=== PATIENT | female | born 1990 | race Caucasian/White ===

== ENCOUNTER 2017-04-16 17:07 | Emergency (ER) | payer MEDICAID ==
[~2017-04-16] VITALS: Ht 162.6 cm; Wt 95.0 kg
[~2017-04-16 17:07] MED LIST: NITR100C6 PO; NO HOME MEDS; PREN1TAB79 PO
[2017-04-16] MEDS ORDERED: mag hydrox/Alum hydrox/simeth 30ml oral suspension PO ONE (18:05)
[2017-04-16] MEDS ORDERED: LIDOcaine Viscous 15ml cup PO ONE (18:05)
[2017-04-16] MEDS ORDERED: pantoprazole 40mg Tablet.DR PO ONE (18:05)
[2017-04-16] MEDS ORDERED: famotidine 20mg tablet PO ONE (18:05)
[2017-04-16 18:27] LABS: BASOPHILS # (AUTO) 0.1 X10'3 (0-0.2); BASOPHILS % (AUTO) 0.6 % (0-1); EOSINOPHILS # (AUTO) 0.4 X10'3 (0-0.9); EOSINOPHILS % (AUTO) 4.1 % (0-6); HEMATOCRIT 39.1 % (35.0-45.0); HEMOGLOBIN 13.5 g/dl (12.0-16.0); LYMPHOCYTES # (AUTO) 3.7 X10'3 (1.1-4.8); LYMPHOCYTES % (AUTO) 36.2 % (21-51); MEAN CORPUSCULAR HEMOGLOBIN 27.6 PG (27.0-31.0); MEAN CORPUSCULAR HGB CONC 34.4 % (33.0-36.5); MEAN CORPUSCULAR VOLUME 80.3 FL (78-98); MEAN PLATELET VOLUME 7.5 FL (7.4-10.4); MONOCYTES # (AUTO) 0.6 X10'3 (0-0.9); MONOCYTES % (AUTO) 6.1 % (2-12); NEUTROPHILS # (AUTO) 5.5 X10'3 (1.8-7.7); PLATELET COUNT 400 X10'3 (140-440); RED BLOOD COUNT 4.87 X10'6 (4.20-5.60); RED CELL DISTRIBUTION WIDTH 14.9 % (11.5-14.5); WHITE BLOOD COUNT 10.3 X10'3 (4.5-11.0)
[2017-04-16 18:43] LABS: ALANINE AMINOTRANSFERASE 23 U/L (12-78); ALBUMIN/GLOBULIN RATIO 0.9 (1.1-1.5); ALKALINE PHOSPHATASE 64 IU/L (46-116); ANION GAP 11 (8-16); ASPARTATE AMINO TRANSFERASE 9 U/L (10-37); BILIRUBIN,TOTAL 0.2 MG/DL (0.1-1.0); BLOOD UREA NITROGEN 10 MG/DL (7-18); BUN/CREATININE RATIO 16.4 (6.6-38.0); CALCIUM 9.1 MG/DL (8.5-10.1); CHLORIDE 101 MMOL/L (99-107); CREATININE 0.61 MG/DL (0.40-0.90); GLUCOSE 92 MG/DL (70-104); LIPASE 198 U/L (73-393); POTASSIUM 3.8 MMOL/L (3.5-5.1); SODIUM 140 MMOL/L (135-145); TOTAL CARBON DIOXIDE 28.5 MMOL/L (24-32); TOTAL PROTEIN 8.3 G/DL (6.4-8.2); eGFR > 90 ML/MIN
[2017-04-16 19:10] LABS: CLARITY,URINE Clear (Clear); COLOR,URINE Yellow (Yellow); GLUCOSE, URINE Negative (Neg); KETONES,URINE Negative (Neg); LEUKOCYTE ESTERASE ,URINE Negative (Neg); NITRITES, URINE Negative (Neg); OCCULT BLOOD,URINE Negative (Neg); PH,URINE 5.5 (4.8-8.0); PROTEIN,URINE Negative (Neg)
[2017-04-16 19:12] LABS: URINE HCG NEGATIVE (NEG)
[2017-04-16 19:14] LABS: UA COLLECTION TYPE CLN CATCH MIDSTREAM
[2017-04-16] MEDS ORDERED: PANT-47 PO (19:16)
[2017-04-16 19:49] VITALS: BP 126/80
== END 2017-04-16 19:50 | disposition home or self-care (01) ==
LOC: ER 17:07
DX: R10.13 Epigastric pain (principal); R11.2 Nausea with vomiting, unspecified; R05 Cough; Z88.6 Allergy status to analgesic agent; Z79.899 Other long term (current) drug therapy
CPT/HCPCS: 36415; 71045; 80053; 81003; 81025; 83690; 85025; 99285; J7030

== ENCOUNTER 2018-05-12 12:05 | Emergency (ER) | payer MEDICAID ==
[~2018-05-12] VITALS: Ht 162.6 cm; Wt 86.4 kg
[~2018-05-12 12:05] MED LIST changes: +PANT-47 PO
[2018-05-12 12:43] LABS: CLARITY,URINE SLIGHTLY CLOUDY (Clear); COLOR,URINE YELLOW (Yellow); GLUCOSE, URINE NEGATIVE (Neg); KETONES,URINE NEGATIVE (Neg); LEUKOCYTE ESTERASE ,URINE LARGE (Neg); NITRITES, URINE NEGATIVE (Neg); OCCULT BLOOD,URINE SMALL (Neg); PH,URINE 5.5 (4.8-8.0); PROTEIN,URINE NEGATIVE (Neg); UROBILINOGEN,URINE 0.2 E.U/dL (0.2-1.0)
[2018-05-12 12:52] LABS: UA COLLECTION TYPE CLN CATCH MIDSTREAM
[2018-05-12 12:56] LABS: SQUAMOUS EPITHELIAL CELL,UR MODERATE /LPF (FEW)
[2018-05-12 12:58] LABS: WBC,URINE 30-50 /HPF (0-4)
[2018-05-12 12:59] LABS: TRANSITIONAL EPI CELLS,URINE FEW /HPF; WBC CLUMPS,URINE FEW /HPF (NEGATIVE)
[2018-05-12 13:00] LABS: BACTERIA,URINE FEW /HPF (Neg)
[2018-05-12] MEDS ORDERED: NITR100C6 PO (13:07)
[2018-05-12 13:30] VITALS: BP 125/81
== END 2018-05-12 13:31 | disposition home or self-care (01) ==
LOC: ER 12:05
DX: N39.0 Urinary tract infection, site not specified (principal); R68.83 Chills (without fever); Z88.6 Allergy status to analgesic agent; Z79.899 Other long term (current) drug therapy; Z87.19 Personal history of other diseases of the digestive system; Z87.440 Personal history of urinary (tract) infections; Z98.890 Other specified postprocedural states
CPT/HCPCS: 81001; 87077; 87088; 87186; 99283

== ENCOUNTER 2018-06-24 18:03 | Emergency (ER) | payer MEDICAID ==
[~2018-06-24] VITALS: Ht 162.6 cm; Wt 96.2 kg
[2018-06-24 18:23] VITALS: BP 125/63
[2018-06-24 18:45] LABS: CLARITY,URINE CLEAR (Clear); COLOR,URINE YELLOW (Yellow); GLUCOSE, URINE NEGATIVE (Neg); KETONES,URINE NEGATIVE (Neg); LEUKOCYTE ESTERASE ,URINE NEGATIVE (Neg); NITRITES, URINE NEGATIVE (Neg); OCCULT BLOOD,URINE NEGATIVE (Neg); PH,URINE 5.5 (4.8-8.0); PROTEIN,URINE NEGATIVE (Neg); UROBILINOGEN,URINE 0.2 E.U/dL (0.2-1.0)
[2018-06-24 18:47] LABS: UA COLLECTION TYPE CLN CATCH MIDSTREAM
[2018-06-24 19:23] LABS: URINE HCG NEGATIVE (NEG)
== END 2018-06-24 19:32 | disposition home or self-care (01) ==
LOC: ER 18:04
DX: R30.0 Dysuria (principal); Z98.890 Other specified postprocedural states; Z88.6 Allergy status to analgesic agent; Z88.5 Allergy status to narcotic agent; Z79.899 Other long term (current) drug therapy
CPT/HCPCS: 81003; 81025; 99283

== ENCOUNTER 2019-07-17 09:53 | Emergency (ER) | payer MEDICAID ==
[~2019-07-17] VITALS: Ht 162.6 cm; Wt 97.7 kg
[2019-07-17 09:59] VITALS: BP 125/86
[2019-07-17] MEDS ORDERED: acetaminophen 325mg tablet PO ONE (11:40)
== END 2019-07-17 12:26 | disposition home or self-care (01) ==
LOC: ER 09:53
DX: M25.531 Pain in right wrist (principal); M79.645 Pain in left finger(s); Z98.890 Other specified postprocedural states; Z88.6 Allergy status to analgesic agent; Z88.8 Allergy status to other drugs, medicaments and biological substances; Z79.899 Other long term (current) drug therapy; W10.8XXA Fall (on) (from) other stairs and steps, initial encounter; Y93.89 Activity, other specified; Y92.89 Other specified places as the place of occurrence of the external cause; Y99.8 Other external cause status
CPT/HCPCS: 29125; 73110; 73130; 99284

== ENCOUNTER 2023-04-17 08:07 | Emergency (ER) | payer MEDICAID ==
[~2023-04-17] VITALS: Ht 160 cm; Wt 76.2 kg
[2023-04-17 08:17] VITALS: BP 148/80; PULSE 87; TEMP 98; O2SAT 100
[2023-04-17] MEDS: ondansetron 4mg rapidly disintigrating tab PO ONE (09:50)
[2023-04-17 09:51] VITALS: RESP 16
[2023-04-17] MEDS: HYDROcodone/acetaminophen 10/325mg tab PO ONE (09:51)
[2023-04-17] MEDS: TETanus/Pertussis (Acell)/Diphther VAC/PF (Tdap-Adult) 0.5ml syringe IMVAC ONE (09:53)
[2023-04-17] MEDS: LIDOcaine 1% 30ml preserv. free vial IJ STA (09:54)
[2023-04-17] MEDS ORDERED: CEPH250T PO (11:05)
== END 2023-04-17 12:03 | disposition home or self-care (01) ==
LOC: ER 08:08
DX: S61.411A Laceration without foreign body of right hand, initial encounter (principal); Z88.6 Allergy status to analgesic agent; Z79.2 Long term (current) use of antibiotics; Z79.899 Other long term (current) drug therapy; W01.0XXA Fall on same level from slipping, tripping and stumbling without subsequent striking against object, initial encounter; Y93.89 Activity, other specified; Y92.89 Other specified places as the place of occurrence of the external cause; Y99.8 Other external cause status
CPT/HCPCS: 12002; 12042; 73130; 90471; 90715; 99283; 99284; A6449

== ENCOUNTER 2023-07-16 17:50 | Inpatient (IN) | payer MEDICAID ==
[~2023-07-16] VITALS: Ht 160 cm; Wt 68.7 kg
[2023-07-16 17:50] VITALS: TEMP 98.9
[2023-07-16 18:40] LABS: BASOPHILS % (AUTO) 0.5 % (0-1); EOSINOPHILS # (AUTO) 0.2 X10'3 (0-0.9); EOSINOPHILS % (AUTO) 2.6 % (0-6); HEMATOCRIT 40.1 % (35.0-45.0); HEMOGLOBIN 13.7 g/dl (12.0-16.0); LYMPHOCYTES # (AUTO) 2.4 X10'3 (1.1-4.8); LYMPHOCYTES % (AUTO) 29.4 % (21-51); MEAN CORPUSCULAR HEMOGLOBIN 28.8 PG (27.0-31.0); MEAN CORPUSCULAR HGB CONC 34.2 g/dL (33.0-36.5); MEAN CORPUSCULAR VOLUME 84.4 FL (78-98); MEAN PLATELET VOLUME 7.4 FL (7.4-10.4); MONOCYTES # (AUTO) 0.5 X10'3 (0-0.9); NEUTROPHILS % (AUTO) 61.5 % (42-75); PLATELET COUNT 415 X10'3 (140-440); RED BLOOD COUNT 4.76 X10'6 (4.20-5.60); RED CELL DISTRIBUTION WIDTH 13.7 % (11.5-14.5); WHITE BLOOD COUNT 8.2 X10'3 (4.5-11.0)
[2023-07-16 19:00] LABS: ALBUMIN 3.8 G/DL (3.4-5.0); ANION GAP 6 (8-16); BLOOD UREA NITROGEN 10 MG/DL (7-18); BUN/CREATININE RATIO 16.1 (10.0-20.0); CALCIUM 9.6 MG/DL (8.5-10.1); CHLORIDE 103 MMOL/L (99-107); CREATININE 0.62 MG/DL (0.40-0.90); GLUCOSE 107 MG/DL (70-104); POTASSIUM 3.7 MMOL/L (3.5-5.1); PRO BRAIN NATRIURETIC PEPTIDE < 30 PG/ML (0-125); SODIUM 139 MMOL/L (135-145); eCRCL 108 ML/MIN; eGFR > 90 ML/MIN
[2023-07-16 20:00] VITALS: BP 130/80; PULSE 79; RESP 17; O2SAT 96
[2023-07-16 22:02] LABS: D-DIMER 0.26 MG/L FEU (0-0.50)
[2023-07-16 22:12] LABS: THYROID STIMULATING HORMONE 4.26 ulU/ml (0.34-4.50)
[2023-07-16] MEDS ORDERED: ondansetron 4mg rapidly disintigrating tab PO PRN (22:30)
[2023-07-16] MEDS ORDERED: potassium Cl 40MEQ/1/2NS 520ml 520 ML IV PRN (22:30)
[2023-07-16] MEDS ORDERED: meclizine 12.5mg tablet PO PRN (22:30)
[2023-07-16] MEDS ORDERED: magnesium 2GM in 50ml NS 50 ML IV PRN (22:30)
[2023-07-16] MEDS ORDERED: ondansetron/PF 4mg/2ml inj IV PRN (22:30)
[2023-07-16] MEDS ORDERED: acetaminophen 325mg tablet PO PRN ×2 (22:30)
[2023-07-16] MEDS ORDERED: magnesium Cl slow-release 64mg tablet PO PRN (22:30)
[2023-07-16] MEDS ORDERED: mag hydrox/Alum hydrox/simeth 30ml oral suspension PO PRN (22:30)
[2023-07-16] MEDS ORDERED: magnesium 4gm in 100ml NS 100 ML IV PRN (22:30)
[2023-07-16] MEDS ORDERED: magnesium hydroxide 30ml (MOM) UD suspension PO PRN (22:30)
[2023-07-16] MEDS ORDERED: potassium Cl 20 mEq SR tablet PO PRN ×2 (22:30)
[2023-07-16 22:50] LABS: HEMOGLOBIN A1C 5.2 % (4.5-6.2)
[2023-07-17] MEDS ORDERED: K and/or MAG REPLACEMENT MC SCH (08:00)
[2023-07-17] MEDS ORDERED: docusate sod 100mg capsule PO SCH (08:00)
[2023-07-17] MEDS ORDERED: enoxaparin 40mg/0.4ml syringe SUBCUT SCH (08:00)
== END 2023-07-17 01:16 | disposition left against medical advice (07) | DRG 204 ==
LOC: ER 17:50 → ED HOLD 22:32
PROVIDERS: ADMIT Family Medicine; ATTEND Family Medicine
DX: R55 Syncope and collapse (principal); Z53.21 Procedure and treatment not carried out due to patient leaving prior to being seen by health care provider; Z88.6 Allergy status to analgesic agent; Z98.891 History of uterine scar from previous surgery
CPT/HCPCS: 36415; 70450; 71045; 72125; 80048; 83036; 83880; 84443; 84484; 85025; 85379; 93005; 99285; G0378